=== PATIENT | male | born 1980 | race Caucasian/White ===

== ENCOUNTER 2020-08-12 13:45 | Outpatient (REF) | payer OTHER, SELFPAY | END 2020-08-12 13:46 | disposition home or self-care (01) | LOC: HO.LAB 13:45 | PROVIDERS: Visit Provider Internal Medicine | DX: Z13.89 Encounter for screening for other disorder (principal) | CPT/HCPCS: C9803; U0003 ==

== ENCOUNTER 2020-08-13 15:34 | Outpatient (REF) | payer OTHER, SELFPAY | END 2020-08-13 15:35 | disposition home or self-care (01) | LOC: HO.LAB 15:34 | PROVIDERS: Visit Provider Internal Medicine | DX: Z20.828 Contact with and (suspected) exposure to other viral communicable diseases (principal) | CPT/HCPCS: C9803; U0003 ==

== ENCOUNTER → 2024-06-19 08:05 | Outpatient (BNVA) | payer SELFPAY | PROVIDERS: Visit Provider Internal Medicine | DX: Z02.79 Encounter for issue of other medical certificate (principal) ==